=== PATIENT | female | born 1990 | race African-American/Black ===

== ENCOUNTER 2022-03-20 04:10 | Emergency (ER) | payer MEDICAID ==
[~2022-03-20] VITALS: Ht 172.7 cm; Wt 80.0 kg
[2022-03-20] MEDS ORDERED: TOPUD PO (06:25)
[2022-03-20 06:50] VITALS: BP 123/78
== END 2022-03-20 06:50 | disposition home or self-care (01) ==
LOC: ER 04:10
DX: S50.812A Abrasion of left forearm, initial encounter (principal); V49.49XA Driver injured in collision with other motor vehicles in traffic accident, initial encounter; Y93.89 Activity, other specified; Y92.89 Other specified places as the place of occurrence of the external cause; Y99.8 Other external cause status
CPT/HCPCS: 71101; 73090; 99284